=== PATIENT | male | born 1980 | race African-American/Black ===

== ENCOUNTER 2018-06-06 11:19 | Inpatient (IN) | payer SELFPAY ==
[2018-06-06] MEDS ORDERED: ZIPRASIDONE MESYLATE INJ/PF 20 MG SDV IM ONE (11:31)
[2018-06-06 12:42] LABS: ABSOLUTE LYMPHOCYTES (AUTO) 1.2 10^3/uL (0.5-4.7); ABSOLUTE NEUT (AUTO) 13.3 10^3/uL (1.7-8.2); BASOPHILS % (AUTO) 0.1 % (0-2); EOSINOPHILS % (AUTO) 0.1 % (0-6); HEMATOCRIT 41.2 % (37.9-51.0); HEMOGLOBIN 13.8 g/dL (13.5-17.0); LYMPHOCYTES % (AUTO) 7.5 % (13-45); MEAN CORPUSCULAR HEMOGLOBIN 30.1 pg (27.0-33.4); MEAN CORPUSCULAR HGB CONC 33.5 g/dL (32.0-36.0); MEAN CORPUSCULAR VOLUME 90 fl (80-97); MONOCYTES % (AUTO) 6.6 % (3-13); PLATELET COUNT 320 10^3/uL (150-450); RED BLOOD COUNT 4.59 10^6/uL (4.35-5.55); RED CELL DISTRIBUTION WIDTH 14.1 % (11.5-14.0); SEGMENTED NEUTROPHILS % (AUTO) 85.7 % (42-78); TOTAL CELLS COUNTED % (AUTO) 100 %; WHITE BLOOD COUNT 15.6 10^3/uL (4.0-10.5)
[2018-06-06 12:48] LABS: PROTHROMBIN TIME 12.6 SEC (11.4-15.4)
[2018-06-06 12:49] LABS: PARTIAL THROMBOPLASTIN TIME 25.8 SEC (23.5-35.8)
[2018-06-06 13:04] LABS: ALANINE AMINOTRANSFERASE 37 U/L (21-72); ALBUMIN 4.4 g/dL (3.5-5.0); ALKALINE PHOSPHATASE 96 U/L (38-126); ANION GAP 9 (5-19); ASPARTATE AMINO TRANSFERASE 39 U/L (17-59); BILIRUBIN,DIRECT 0.3 mg/dL (0.0-0.4); BILIRUBIN,TOTAL 0.4 mg/dL (0.2-1.3); BLOOD UREA NITROGEN 15 mg/dL (7-20); CALCIUM 9.9 mg/dL (8.4-10.2); CARBON DIOXIDE 25 mmol/L (22-30); CHLORIDE 104 mmol/L (98-107); CREATINE KINASE 342 U/L (55-170); GLUCOSE 103 mg/dL (75-110); POTASSIUM 4.2 mmol/L (3.6-5.0); SODIUM 138.2 mmol/L (137-145); TOTAL PROTEIN 7.8 g/dL (6.3-8.2)
[2018-06-06 13:08] LABS: ACETAMINOPHEN < 10 ug/mL (10-30); ALCOHOL < 10 mg/dL (NONE DETECTED); SALICYLATE < 1.0 mg/dL (2.0-20.0)
--- NOTE | 2018-06-06 13:11 | RADIOLOGY REPORT (SQ) ---
EXAM DESCRIPTION: CT HEAD WITHOUT COMPLETED DATE/TIME: 06/06/2018 1:01 pm REASON FOR STUDY: altered mental status COMPARISON: None. TECHNIQUE: Axial images acquired through the brain without intravenous contrast. Images reviewed wi th bone, brain and subdural windows. Additional sagittal and coronal reconstructions were generated. Images stored on PACS. All CT scanners at this facility use dose modulation, iterative reconstruction, and/or weight based d osing when appropriate to reduce radiation dose to as low as reasonably achievable (ALARA). [facility]: Dose Right [facility]: CareDose [facility]: Dose Right [facility]: Teradose 4D [facility]: Smart [employer]ync RADIATION DOSE: CT Rad equipment meets quality standard of care and radiation dose reduction techniq ues were employed. CTDIvol: 55.2 mGy. DLP: 1056 mGy-cm. mGy. LIMITATIONS: None. FINDINGS: VENTRICLES: Normal size and contour. CEREBRUM: No masses. No hemorrhage. No midline shift. No evidence for acute infarction. Normal gra y/white matter differentiation. No areas of low density in the white matter. CEREBELLUM: No masses. No hemorrhage. No alteration of density. No evidence for acute infarction. EXTRAAXIAL SPACES: No fluid collections. No masses. ORBITS AND GLOBE: No intra- or extraconal masses. Normal contour of globe without masses. CALVARIUM: No fracture. PARANASAL SINUSES: No fluid or mucosal thickening. SOFT TISSUES: No mass or hematoma. OTHER: No other significant finding. IMPRESSION: No acute intracranial pathology. EVIDENCE OF ACUTE STROKE: NO. COMMENT: Quality ID # [id number]: Final reports with documentation of one or more dose reduction techniques (e.g., Automated exposure control, adjustment of the mA and/or kV according to patient size, use of iterative reconstruction technique) TECHNICAL DOCUMENTATION: JOB ID: [id number] [employer]- All Rights Reserved Reading location - IP/workstation name: [email or web address]
--- NOTE | 2018-06-06 13:11 | RADIOLOGY REPORT (SQ) ---
EXAM DESCRIPTION: CHEST SINGLE VIEW COMPLETED DATE/TIME: 06/06/2018 1:03 pm REASON FOR STUDY: altered mental status COMPARISON: None. EXAM PARAMETERS: NUMBER OF VIEWS: One view. TECHNIQUE: Single frontal radiographic view of the chest acquired. RADIATION DOSE: NA LIMITATIONS: None. FINDINGS: LUNGS AND PLEURA: Low lung volumes. No infiltrate, effusion, or mass. MEDIASTINUM AND HILAR STRUCTURES: No masses. Contour normal. HEART AND VASCULAR STRUCTURES: Cardiomegaly. No pulmonary edema. BONES: No acute findings. HARDWARE: None in the chest. OTHER: No other significant finding. IMPRESSION: Cardiomegaly with no pulmonary edema. Low lung volumes. TECHNICAL DOCUMENTATION: JOB ID: [id number] [employer]- All Rights Reserved Reading location - IP/workstation name: [email or web address]
[2018-06-06 13:16] LABS: CREATINE KINASE MB 0.67 ng/mL (<4.55); TROPONIN I < 0.012 ng/mL
[2018-06-06 16:40] LABS: APPEARANCE,URINE SLIGHTLY-CLOUDY; BILIRUBIN,URINE NEGATIVE (NEGATIVE); COLOR,URINE YELLOW; GLUCOSE, URINE NEGATIVE (NEGATIVE); KETONES,URINE NEGATIVE (NEGATIVE); LEUKOCYTE ESTERASE,URINE NEGATIVE (NEGATIVE); NITRITE,URINE NEGATIVE (NEGATIVE); PROTEIN,URINE NEGATIVE (NEGATIVE); URINE SPECIFIC GRAVITY 1.012; UROBILINOGEN,URINE NEGATIVE mg/dL (<2.0)
[2018-06-06 16:56] LABS: URINE AMPHETAMINES SCREEN NEGATIVE; URINE BARBITURATES SCREEN NEGATIVE; URINE BENZODIAZEPINES SCREEN UNCONFIRMED POSITIVE; URINE COCAINE SCREEN UNCONFIRMED POSITIVE; URINE MARIJUANA (THC) SCREEN UNCONFIRMED POSITIVE; URINE METHADONE SCREEN NEGATIVE; URINE PHENCYCLIDINE SCREEN NEGATIVE
[2018-06-06] MEDS ORDERED: RINGERS SOLUTION,LACTATED 1,000 ML IV PRN (17:38)
--- NOTE | 2018-06-06 17:56 | PDOC H&P ---
History of Present Illness History of Present Illness: WIN GARCIA is a 37 year old male whose family called EMS on him 3 times a day. All of this is obtained from the chart because the patient will not wake up to give me a history. Apparently he became altered and so the family called EMS and when EMS got there the first time he woke up and got agitated and so they left. The family called EMS a second time when they came back out he woke up again and got aggressive. Family decided to try to take him to the hospital themselves, and they got to a gas station and called EMS a third time. That time he was somnolent, and so EMS gave him some Narcan and when he got this medication he woke up and became extremely violent. They wound up giving him ketamine and bring him into the ER. When he got to the ER he was acting extremely violent and so he got put in four-point restraints and was given Geodon. He is out of restraints now but he is also fast asleep. Apparently was hypertensive whenever they first saw him but it was difficult to say if this was an accurate reading because he was kicking and thrashing around so much. After all the drugs he is gotten, the ER provider was not comfortable sending him home. Social History Smoking Status: Unknown if Ever Smoked Family History Family History: Other - Unable to obtain due to his mental status Parental Family History Reviewed: No - Unable to obtain Children Family History Reviewed: No - Unable to obtain Sibling(s) Family History Reviewed.: No - Unable to obtain Medication/Allergy Allergies/Adverse Reactions: No Known Allergies Allergy (Unverified 06/06/18 14:49) Review of Systems ROS unobtainable: Due to mental status Physical Exam Vital Signs: Temp Pulse Resp BP Pulse Ox 98.5 F 17 256/148 H 95 06/06/18 17:12 06/06/18 16:00 06/06/18 12:03 06/06/18 16:00 Intake & Output 06/05/18 06/06/18 06/07/18 06:59 06:59 06:59 Weight 102 kg General appearance: PRESENT: no acute distress, disheveled, morbidly obese, other - Sedated Head exam: PRESENT: atraumatic, normocephalic Eye exam: PRESENT: PERRLA - Pupils were sluggish. ABSENT: conjunctival injection, nystagmus, scleral icterus Ear exam: PRESENT: normal external ear exam Mouth exam: PRESENT: moist, neck supple Neck exam: PRESENT: full ROM. ABSENT: carotid bruit, JVD, lymphadenopathy, meningismus, tenderness, thyromegaly Respiratory exam: PRESENT: clear to auscultation yolanda, symmetrical, unlabored. ABSENT: accessory muscle use, crackles, decreased breath sounds, prolonged expiratory phas, rhonchi, stridor, tachypnea, wheezes Cardiovascular exam: PRESENT: RRR, +S1, +S2 Pulses: PRESENT: normal carotid pulses Vascular exam: PRESENT: normal capillary refill GI/Abdominal exam: PRESENT: normal bowel sounds, soft. ABSENT: distended, guarding, rebound, tenderness Extremities exam: ABSENT: clubbing, pedal edema Musculoskeletal exam: PRESENT: normal inspection. ABSENT: deformity Neurological exam: PRESENT: altered - Sedated Skin exam: PRESENT: dry, warm Results Laboratory Results: 06/06/18 12:20 06/06/18 12:20 06/06/18 06/06/18 06/06/18 12:20 12:20 16:17 WBC 15.6 H RBC 4.59 Hgb 13.8 Hct 41.2 MCV 90 MCH 30.1 MCHC 33.5 RDW 14.1 H Plt Count 320 Seg Neutrophils % 85.7 H Lymphocytes % 7.5 L Monocytes % 6.6 Eosinophils % 0.1 Basophils % 0.1 Absolute Neutrophils 13.3 H Absolute Lymphocytes 1.2 Absolute Monocytes 1.0 Absolute Eosinophils 0.0 Absolute Basophils 0.0 Sodium 138.2 Potassium 4.2 Chloride 104 Carbon Dioxide 25 Anion Gap 9 BUN 15 Creatinine 1.55 H Est GFR ( Amer) > 60 Est GFR (Non-Af Amer) 51 L Glucose 103 Calcium 9.9 Magnesium 2.2 Total Bilirubin 0.4 AST 39 ALT 37 Alkaline Phosphatase 96 Total Protein 7.8 Albumin 4.4 Urine Color YELLOW Urine Appearance SLIGHTLY-CLOUDY Urine pH 6.0 Ur Specific [place] 1.012 Urine Protein NEGATIVE Urine Glucose (UA) NEGATIVE Urine Ketones NEGATIVE Urine Blood NEGATIVE Urine Nitrite NEGATIVE Ur Leukocyte Esterase NEGATIVE Urine WBC (Auto) 5 Urine RBC (Auto) 13 06/06/18 06/06/18 12:20 12:20 Creatine Kinase 342 H CK-MB (CK-2) 0.67 Troponin I < 0.012 Impressions: Chest X-Ray 06/06/18 11:29 IMPRESSION: Cardiomegaly with no pulmonary edema. Low lung volumes. Head CT 06/06/18 11:29 IMPRESSION: No acute intracranial pathology. EVIDENCE OF ACUTE STROKE: NO. Assessment and Plan - Diagnosis (1) Drug overdose Qualifiers: Encounter type: initial encounter Injury intent: undetermined intent Q ualified Code(s): T50.904A - Poisoning by unspecified drugs, medicaments and biological substances, undetermined, initial encounter Is this a current diagnosis for this admission?: Yes Plan: We do not know if this was intentional or not. When he wakes up we can ask him more. We will give him some supportive IV fluids when he wakes up we can try to determine whether or not he did this intentionally. - Time Time Spent with patient: 35 or more minutes - Inpatient Certification Based on my medical assessment, after consideration of the patient's comorbidities, presenting symptoms, or acuity I expect that the services needed warrant INPATIENT care.: Yes I certify that my determination is in accordance with my understanding of [facility]'s requirements for reasonable and necessary INPATIENT services [42 CFR 412.3e].: Yes Medical Necessity: Need Close Monitoring Due to Risk of Patient Decompensation, Need For IV Fluids, Need For Continuous Telemetry Monitoring
--- NOTE | 2018-06-06 17:58 | ER Document Report ---
ED General - General Chief Complaint: Possible Overdose Stated Complaint: ALTERED MENTAL STATUS Time Seen by Provider: 06/06/18 11:28 - HPI Notes: Patient is brought to the emergency department for evaluation via EMS. The history that I received his somewhat convoluted. It is pieced together from EMS and patient's mother. In short, the patient was at a alliance party all night. He was doing drugs. According to police there was heroin found at the scene. Evidently another family member called his mother, stated he was acting abn ormally. EMS was called. Per EMS he initially refused transport. He seemed potentially altered, but was oriented enough to decline care. They were then called back when his disorientation worsened. There was some question as to whether or not he suffered any seizure activity. I am unable to talk to anyone who actually witnessed any, but there is some reported per the family. He has no known history of seizures. No known recent head traumas. Patient's family last saw him on Tuesday evening. That time he had no complaints or concerns, was acting normally. - Related Data Allergies/Adverse Reactions: No Known Allergies Allergy (Unverified 06/06/18 14:49) Past Medical History - General Information source: Parent - Social History Smoking Status: Current Every Day Smoker Frequency of alcohol use: Occasional Drug Abuse: Heroin, Marijuana, Prescription drugs Family History: Other - Mother admits to drug abuse, used during with patient Patient has suicidal ideation: No Patient has homicidal ideation: No Renal/ Medical History: Denies: Hx Peritoneal Dialysis Review of Systems - Review of Systems -: Yes ROS unobtainable due to patient's medical condition Physical Exam - Vital signs Vitals: Resp Pulse Ox 29 H 89 L 06/06/18 11:26 06/06/18 11:26 - Notes Notes: Patient is altered, intermittently screaming. Head is normocephalic and atraumatic. Pupils are equal, round, reactive to light. There presently 4 mm in diameter. Oral mucosa is moist. Neck is supple, no apparent meningismus. Heart is regular rate and rhythm, lungs are clear to auscultate bilaterally. Abdomen soft, nontender, normoactive bowel sounds. Patient responds to painful stimuli. He will not verbalize. He opens his eyes initially spontaneously. He moves all 4 extremities spontaneously. He will not follow any other directions initially. Course - Re-evaluation Re-evalutation: 06/06/18 18:05 Patient presented to the emergency department for evaluation. Evidently he was under the influence of multiple drugs. There was some question of whether or not he had some seizure activity. Upon arrival, EMS administered Narcan. He wa s then extremely combative. They administered 400 mg of ketamine. Upon his arrival the patient was extremely altered, and seemed to me to be experiencing some sort of an emergence phenomenon. We were unable to safely evaluate the patient. Patient was medicated here with Geodon 10 mg IM. He was calm enough at that point did undergo testing. Laboratory investigations were unremarkable for a tox screen, positive for opiates, marijuana, cocaine, benzodiazepines. CT scan was unremarkable. EKG showed no acute changes. Patient was monitored for several hours here. He would intermittently follow directions, but would not verbalize anything to me. Multiple neurological checks were performed. His pupils are equal and round. He moves all 4 extremities spontaneously. I am convinced that this patient's symptoms are as a result of polypharmacy. I do not feel comfortable sending him home with this altered mental status. I did speak with Dr. Laguerre, the patient will be admitted for further care. 06/06/18 18:11 - Vital Signs Vital signs: Temp Pulse Resp BP Pulse Ox 98.5 F 17 256/148 H 95 06/06/18 17:12 06/06/18 16:00 06/06/18 12:03 06/06/18 16:00 - Laboratory Result Diagrams: 06/06/18 12:20 06/06/18 12:20 Laboratory results interpreted by me: 06/06/18 06/06/18 12:20 12:20 WBC 15.6 H RDW 14.1 H Seg Neutrophils % 85.7 H Lymphocytes % 7.5 L Absolute Neutrophils 13.3 H Creatinine 1.55 H Est GFR (Non-Af Amer) 51 L Creatine Kinase 342 H Salicylates < 1.0 L Acetaminophen < 10 L - Diagnostic Test Radiology reviewed: Reports reviewed - No acute cardiopulmonary disease, no acute change on head CT - EKG Interpretation by Me Additional EKG results interpreted by me: 06/06/18 18:02 Sinus tachycardia with a rate of 107 bpm. Normal axis and intervals, no acute ST changes concerning for ischemia or infarction. Critical Care Note - Critical Care Note Total time excluding time spent on procedures (mins): 25 Discharge - Discharge Clinical Impression: Altered mental status, unspecified, Polysubstance abuse Condition: Stable Disposition: ADMITTED INPATIENT Admitting Provider: Carlotta (Hospitalist) Unit Admitted: [facility]
[2018-06-06] MEDS: HEPARIN SOD (PORCINE) 5,000 UNIT/ML 1 ML SYRINGE SUBCUT SCH (21:36)
--- NOTE | 2018-06-06 23:56 | EKG REPORT ---
SEVERITY:- BORDERLINE ECG - SINUS TACHYCARDIA BORDERLINE T ABNORMALITIES, INFERIOR LEADS : Confirmed by: Lenka Allred 06-Jun-2018 23:56:17
[2018-06-07 03:11] VITALS: BP 121/59
[2018-06-07] MEDS: HEPARIN SOD (PORCINE) 5,000 UNIT/ML 1 ML SYRINGE SUBCUT SCH (05:10)
[2018-06-07 05:27] LABS: HEMATOCRIT 42.1 % (37.9-51.0); HEMOGLOBIN 14.4 g/dL (13.5-17.0); MEAN CORPUSCULAR HEMOGLOBIN 30.4 pg (27.0-33.4); MEAN CORPUSCULAR HGB CONC 34.3 g/dL (32.0-36.0); MEAN CORPUSCULAR VOLUME 89 fl (80-97); PLATELET COUNT 313 10^3/uL (150-450); RED BLOOD COUNT 4.74 10^6/uL (4.35-5.55); RED CELL DISTRIBUTION WIDTH 14.3 % (11.5-14.0); WHITE BLOOD COUNT 8.1 10^3/uL (4.0-10.5)
[2018-06-07 05:51] LABS: ANION GAP 9 (5-19); BLOOD UREA NITROGEN 14 mg/dL (7-20); CALCIUM 9.8 mg/dL (8.4-10.2); CARBON DIOXIDE 24 mmol/L (22-30); CHLORIDE 111 mmol/L (98-107); CREATINE KINASE 944 U/L (55-170); GLUCOSE 90 mg/dL (75-110); POTASSIUM 4.2 mmol/L (3.6-5.0); SODIUM 144.3 mmol/L (137-145)
--- NOTE | 2018-07-14 14:33 | Left Against Medical Advice ---
Against Medical Advice Admission Date/Time: 06/06/18 17:57 Primary Care Provider: Date of Patient Emigration: 06/06/18 - Diagnosis: (1) Drug overdose Is this a current diagnosis for this admission?: Yes - Summary: Summary: Please see Admission and Progress Notes as well. WIN GARCIA is a 37 M, who LEFT AGAINST MEDICAL ADVICE. The Patient was admitted on 06/06/18 17:57.
== END 2018-06-07 06:39 | disposition left against medical advice (07) | DRG 918 ==
LOC: ER 11:19 → EH 17:57 → 3W 20:02
PROVIDERS: ADMIT Family Medicine; ATTEND Family Medicine
DX: T50.901A Poisoning by unspecified drugs, medicaments and biological substances, accidental (unintentional), initial encounter (principal); Z78.1 Physical restraint status; F17.200 Nicotine dependence, unspecified, uncomplicated; F11.10 Opioid abuse, uncomplicated; F14.10 Cocaine abuse, uncomplicated; F12.10 Cannabis abuse, uncomplicated; F13.10 Sedative, hypnotic or anxiolytic abuse, uncomplicated; Y92.9 Unspecified place or not applicable
CPT/HCPCS: 36415; 51702; 70450; 71045; 80048; 80053; 80307; 81001; 82550; 82553; 83735; 84484; 85025; 85027; 85610; 85730; 93005; 93010; 96372; 99285; J1644; J3486; J7120